=== PATIENT | male | born 1980 | race Caucasian/White ===

== ENCOUNTER 2025-01-23 00:41 | Emergency (ER) | payer BC, SELFPAY ==
[2025-01-23 00:50] VITALS: BP 139/95
[2025-01-23 01:17] LABS: Hematocrit 46.6 % (39.0-52.0); Hemoglobin 16.5 g/dL (13.0-18.0); Mean Corp Hgb Conc. 35.4 g/dL (33.0-37.0); Mean Corpuscular Volume 87.3 fL (80.0-94.0); Nucleated Red Blood Cells % 0 % (-); Platelet Count 164 10^3/uL (130-400); Red Cell Dist. Width 12.3 % (11.5-14.5)
[2025-01-23 01:28] LABS: ALT (SGPT) 26 U/L (0-50); AST (SGOT) 19 U/L (17-59); Albumin 4.6 g/dl (3.5-5.0); Alkaline Phosphatase 86 U/L (38-126); Blood Urea Nitrogen 21 mg/dl (9-20); Calcium 9.4 mg/dl (8.4-10.2); Carbon Dioxide 28 mmol/L (22-30); Chloride 108 mmol/L (98-107); Glucose 101 mg/dl (70-99); Potassium 4.1 mmol/L (3.5-5.1); Sodium 139 mmol/L (135-145); Total Protein 7.0 g/dl (6.3-8.2); eGFR > 60.00
[2025-01-23 01:46] LABS: Troponin I 0.035 ng/ml
[2025-01-23 02:45] VITALS: BP 124/68
[2025-01-23 02:55] VITALS: BMI 33.7
[2025-01-23] MEDS: NITROSTAT (SUBLINGUAL) 0.4 MG SL (04:32)
[2025-01-23] MEDS: LOW STRENGTH ASPIRIN 324 MG PO (04:35)
[2025-01-23 04:37] VITALS: BP 127/76
--- NOTE | 2025-01-23 04:47 | ED.GENMED ---
History of Present Illness
General
Chief Complaint: Chest Pain
Source: patient and previous hospital records (ED visit January 2013 with similar chest pain complaint.)
Exam Limitations: none
Time Seen by Provider: 01/23/25 03:45
Nursing documentation reviewed up to this point in time: agreed with
History of Present Illness
History of Present Illness:
The patient is a 44-year-old male who presents with a chief complaint of left-sided chest discomfort that started on Wednesday evening, a little over 24 hours prior to presentation. The onset of symptoms coincided with engaging in heavy lifting. The
pain began suddenly while lifting a heavy TV. The patient describes the sensation as a lot of pressure in the chest during the activity, which persists even after he stopped. The discomfort does not appear to worsen with physical activity,
breathing, eating, or drinking. The patient denies associated symptoms such as shortness of breath, sweating, nausea, or pain exacerbated by movement of the arm. He reported experiencing one sharp pain for about three seconds while lying in bed at
9:30 PM with no associated exertion. No significant family history of heart disease or personal history of high blood pressure, high cholesterol, or diabetes was reported. The patient was evaluated in this ED January 2013 with similar left-sided
chest pain, occasional radiating to his left arm but at that time not associated with heavy lifting. Unremarkable ED visit at that time.
He has since followed up with [facility] and has undergone several unremarkable stress tests, most recently approximately 2 years ago.
He took a dose of Pepcid yesterday without relief.
Other than this he takes no medicines on a daily basis.
Past History
Past History
ED Past Medical History: None
ED Past Surgical History: Cholecystectomy, Urological (Vasectomy) and Other (Varicocele)
Social History
Tobacco: Non-smoker
Personal: Single
Living: with family
Employment: Employed
Family History
Family History: Negative Hypertension, Early CAD or CAD
Phy Exam
Physical Exam
Physical Exam:
GENERAL: 44-year-old gentleman appears his stated age, awake and alert, pleasant, appears in no acute distress.
EYE: anicteric
NECK: Supple, nontender, no meningismus, no significant adenopathy.
ENT: oral mucosa is moist. No rhinorrhea.
CARDIAC: Regular rate and rhythm. no murmur. No palpable chest wall tenderness.
LUNGS: Clear breath sounds bilaterally, no acute respiratory distress, no wheezes/rales/rhonchi
ABDOMEN: Soft, nondistended, without focal tenderness, no r/g, no cvat. normoactive BS.
NEUROLOGICAL: Alert and oriented x3, no focal neuro deficits. Gait is steady.
SKIN: Warm and dry, normal color, skin intact. No rash.
MUSCULOSKELETAL: No C/C/E. peripheral pulses are full and equal b/l. No palpable tenderness.
PSYCH: Normal and appropriate interaction.
Scores
Heart Score for Chest Pain Patients
STEMI patient?: No
History: Slightly or Non-Suspicious
ECG: Normal
Age: </= 45 years
Risk Factors: No Risk Factors
Troponin: >1 - <3 x Normal Limit
Heart Score for Chest Pain Patients: 1
Heart Score Risk: 2.5% MACE over next 6 weeks
Course
Orders/Labs/Results
Orders:
Orders
01/23/25
Electrocardiogram (*1) Stat
Reason for Study: Chest Pain
Comment: DONE
01/23/25 00:56
Cardiac Monitoring- Treatment ONCE
IV Insert/Care/Rem.- Treatment PRN
CR Chest - 2 Views Urgent
Comment:
Reason For Exam: respiratory distress
O2 Therapy [RESP] Urgent
Titrate/Wean O2 to maintain O2 sat greater than (%): 93
Special Instructions: TO MAINTAIN CONTINUOUS O2 SATS >/= 93%
Pulse Ox/cont/shift [RESP] Urgent
Quantity: 1
Special Instructions: continuous pulse ox
01/23/25 01:06
Complete Blood Count/With Diff Urgent
Comprehensive Metabolic Panel Urgent
NT-proBNP Urgent
Troponin I Urgent
01/23/25 03:49
Electrocardiogram (*1) Urgent
Reason for Study: Chest Pain
EKG- Treatment ONCE
01/23/25 03:58
Aspirin Chewable [Low Strength Aspirin] 324 mg PO NOW STA
Nitroglycerin Sublingual [Nitrostat (Sublingual)] 0.4 mg SL NOW STA
01/23/25 04:19
Troponin I Urgent
Abnormal Lab Results
01/23/25
01:06
Immature Gran % 0.6 H %
(0-0.5)
Chloride 108 H mmol/L
(98-107)
BUN 21 H mg/dl
(9-20)
Glucose 101 H mg/dl
(70-99)
Troponin I 0.035 H* ng/ml
01/23/25 01:06
01/23/25 01:06
Vital Signs
Initial and Last Documented VS:
Initial Vital Signs
Temp Pulse Resp BP Pulse Ox
97.9 F 75 20 139/95 97
01/23/25 00:50 01/23/25 00:50 01/23/25 00:50 01/23/25 00:50 01/23/25 00:50
Last Documented Vital Signs
Temp Pulse Resp BP Pulse Ox
97.9 F 60 17 126/91 95
01/23/25 00:50 01/23/25 05:35 01/23/25 05:35 01/23/25 05:35 01/23/25 05:35
MDM/Problems Addressed
Differential Diagnosis Includes:
The Differential Diagnosis includes, in no particular order and is not limited to:
1. Myocardial infarction
2. Angina pectoris
3. Musculoskeletal chest pain
4. Gastroesophageal reflux disease (GERD)
5. Costochondritis
6. Pericarditis
7. Pulmonary embolism
8. Aortic dissection
9. Pneumothorax
10. Anxiety-related chest pain
EKG shows normal sinus rhythm, incomplete right bundle branch block otherwise unremarkable. Similar and unchanged from previous EKG 2013.
Troponin is borderline elevated 0.035. All other labs within normal limits.
Chest x-ray is unremarkable. Clear lung cormier, normal heart size. Unchanged from previous film 2013.
Patient continues with mild left upper chest discomfort. Will trial sublingual nitroglycerin as well as 324 mg chewable aspirin.
Will repeat troponin now as well as EKG.
MDM/Problems Addressed:
Acute Problems:
- Chest pain of unknown etiology.
- Slightly elevated cardiac enzymes.
*Radiology
Radiology exam reviewed: preliminary read by ED provider (Chest x-ray is unremarkable. Unchanged from previous 2013)
*Pulse Oximetry
SaO2: 98
Oxygen Mode of Delivery: Room air
Patient hypoxic: no
*EKG
Interpreted by ED Provider?: Yes
Comparison EKG: no changes (Unchanged from previous 2013)
Rate: normal
Rhythm: sinus
Vancleave: normal axis
Interval: normal interval
QRS Pattern: right bundle branch block (Incomplete right bundle branch block)
Ischemia: no ischemia
*Rapid Transit Operator Interpretation
Rate: normal
Interpretation: normal
Rhythm: sinus
*Critical Care Note
Total Time (30-74mins, 75-104mins- exclusive of procedures): Not Applicable
Update Note
Update Note:
06:15
Patient continues with mild dull left upper chest ache. No improvement with aspirin, nitroglycerin.
He continues to attempt to rotate his shoulder, move his chest wall about in an attempt to reproduce the pain.
EKG is similar and unchanged from previous.
Repeat troponin improving 0.017.
As nitroglycerin was ineffective, I have offered a dose of Toradol which he declines and instead will take ibuprofen upon returning home.
Patient follows with a [facility] not associated with [facility]. And as above reportedly has undergone several unremarkable stress test most recently within the past 2 years. Recommend prompt follow-up with his [facility] this
week.
Strict return precautions discussed.
ED Attending Note
-
Portions of this chart may have been created with voice recognition software.� Occasional wrong word or��sound alike� substitutions may have occurred due to the inherent limitations of voice recognition software.
Discharge Plan
Departure
Patient Disposition: Home (Routine Discharge)
Date of Disposition: 01/23/25
Time of Disposition: 06:18
Patient with high blood pressure during this ER visit?: No
Condition: Good
Discharge Problem:
Nonspecific chest pain
Instructions: Chest Pain NON-[facility] Orthopedic Podiatrist Follow Up
Prescriptions:
No Action
No Current Medications
0
Referrals:
UNKNOWN - PT DOES,NOT KNOW [Family Provider]
Activity Restrictions/Additional Instructions:
Call your [facility] today for prompt follow-up for recheck.
Interventions
Interventions:
*Risk Screen - Suicide Last Done: 01/23/25 00:50
*General Assessment Last Done: 01/23/25 00:50
*Neglect/Abuse Screening Last Done: 01/23/25 00:50
*ED- Fall Risk Assessment Last Done: 01/23/25 00:50
*ED COVID-19 Vaccine History Last Done: 01/23/25 00:50
ED- Cardiac Assessment Last Done: 01/23/25 02:25
Discharge Date and Time
Print Language: JAPANESE
[2025-01-23 05:29] LABS: Troponin I 0.017 ng/ml
[2025-01-23 05:35] VITALS: BP 126/91
[2025-01-23 06:39] VITALS: BP 125/68
[2025-01-23 06:40] VITALS: BP 125/68
== END 2025-01-23 06:41 | disposition home or self-care (01) ==
LOC: EMR 00:41
PROVIDERS: EMERGENCY PHYSICIAN Emergency Medicine
DX: R07.89 Other chest pain (principal); X50.0XXA Overexertion from strenuous movement or load, initial encounter; Z90.49 Acquired absence of other specified parts of digestive tract
CPT/HCPCS: 99283; 71046; 80053; 83880; 84484; 85025; 93005